=== PATIENT | female | born 2000 | race Two or more races ===

== ENCOUNTER 2022-12-07 10:04 | Emergency (ER) | payer MEDICAID ==
[~2022-12-07] VITALS: Ht 162.6 cm; Wt 115.8 kg
[2022-12-07] MEDS ORDERED: PENICILLIN G BENZ 1200000 UNITS/2 ML SYRG IM ONE (11:00)
[2022-12-07 11:04] VITALS: BP 154/93
== END 2022-12-07 11:41 | disposition home or self-care (01) ==
LOC: ER 10:04
DX: O26.891 Other specified pregnancy related conditions, first trimester (principal); Z3A.11 11 weeks gestation of pregnancy; Z79.2 Long term (current) use of antibiotics
CPT/HCPCS: 96372; 99283; J0561

== ENCOUNTER 2022-12-14 12:49 | Emergency (ER) | payer MEDICAID ==
[~2022-12-14] VITALS: Ht 157.5 cm; Wt 117.7 kg
[2022-12-14] MEDS ORDERED: PENICILLIN G BENZ 1200000 UNITS/2 ML SYRG IM ONE (14:00)
[2022-12-14 14:40] VITALS: BP 130/76
== END 2022-12-14 14:42 | disposition home or self-care (01) ==
LOC: ER 12:49
DX: R10.2 Pelvic and perineal pain (principal); A53.9 Syphilis, unspecified
CPT/HCPCS: 96372; 99283; J0561

== ENCOUNTER 2023-05-08 10:11 | Observation (INO) | payer MEDICAID ==
[2023-05-08 12:11] LABS: Albumin 2.3 g/dL (3.4-5.0); Calcium 8.4 mg/dL (8.5-10.1); Potassium 4.4 mmol/L (3.5-5.1)
[2023-05-08 12:14] LABS: Protein, Urine 23.8 mg/dL (0.0-11.9)
[2023-05-08 12:15] LABS: BUN/Creatinine Ratio 11.9 (10.0-20.0); Bilirubin, Total 0.3 mg/dL (0.2-1.0); Total Protein 6.6 g/dL (6.4-8.2); Uric Acid 4.7 mg/dL (2.6-6.0)
[2023-05-08 12:21] LABS: Urine Bacteria NONE SEEN /hpf (None Seen); Urine Blood Negative /uL (Negative); Urine Specific Gravity 1.016 (1.001-1.035); Urine WBC 8 /hpf (0 - 5)
[2023-05-08 12:26] LABS: Basophils # (auto) 0 10 ^3/uL (0-0.2); Eosinophils # (auto) 0 10 ^3/uL (0-0.8); Monocytes # (auto) 0.5 10 ^3/uL (0-1.3)
[2023-05-08 12:29] LABS: Basophils % (auto) 0.4 % (0.0-2.0); Eosinophils % (auto) 0.4 % (0.0-7.0); Hematocrit 34.3 % (36.0-46.0); Hemoglobin 10.8 g/dL (12.2-16.2); INR 0.93 (0.9-1.15); Lymphocytes # (auto) 2.7 10 ^3/uL (0.4-5.4); Lymphocytes % (auto) 28.7 % (10.0-50.0); Mean Corpuscular Hemoglobin 22.8 pg (28.0-32.0); Mean Corpuscular Hgb Conc. 31.3 g/dL (32.0-36.0); Neutrophils # (auto) 6.1 10 ^3/uL (1.6-8.6); Neutrophils % (auto) 65.5 % (37.0-80.0); Partial Thromboplastin Time 28.5 SEC (24.5-34.5); Red Blood Cells 4.71 10^6/uL (4.0-5.20); Red Cell Distribution Width 16.9 % (11.8-14.3); White Blood Cell 9.3 10^3/uL (4.4-10.8)
[2023-05-08] MEDS ORDERED: NITR-87 PO (13:49)
[2023-05-08] MEDS ORDERED: PREN-96 PO (13:49)
== END 2023-05-08 14:00 | disposition home or self-care (01) ==
LOC: LDRP 10:11
PROVIDERS: ADMIT Obstetrics & Gynecology; ATTEND Obstetrics & Gynecology
DX: O23.43 Unspecified infection of urinary tract in pregnancy, third trimester (principal); N39.0 Urinary tract infection, site not specified; Z3A.33 33 weeks gestation of pregnancy; Z79.899 Other long term (current) drug therapy
CPT/HCPCS: 36415; 59025; 76818; 80053; 81001; 81002; 82570; 84156; 84550; 85025; 85610; 85730; 94760; G0378

== ENCOUNTER 2023-05-24 11:35 | Observation (INO) | payer MEDICAID ==
[~2023-05-24 11:35] MED LIST: NITR-87 PO; PREN-96 PO
== END 2023-05-24 13:00 | disposition home or self-care (01) ==
LOC: LDRP 11:35 → UNDOADMOB 11:35 → LDRP 11:48 → UNDODISOB 13:00
PROVIDERS: ADMIT Obstetrics & Gynecology; ATTEND Obstetrics & Gynecology
DX: O60.03 Preterm labor without delivery, third trimester (principal); Z3A.36 36 weeks gestation of pregnancy
CPT/HCPCS: 59025; 76818; 81002; 94760; G0378

== ENCOUNTER → 2023-05-29 | Outpatient (CLI) | payer MEDICAID ==
[2023-05-29 10:11] LABS: Basophils # (auto) 0 10 ^3/uL (0-0.2); Basophils % (auto) 0.3 % (0.0-2.0); Eosinophils # (auto) 0.1 10 ^3/uL (0-0.8); Eosinophils % (auto) 1.4 % (0.0-7.0); Hematocrit 36.4 % (36.0-46.0); Hemoglobin 11.8 g/dL (12.2-16.2); Lymphocytes # (auto) 2.3 10 ^3/uL (0.4-5.4); Lymphocytes % (auto) 27.8 % (10.0-50.0); Mean Corpuscular Hgb Conc. 32.3 g/dL (32.0-36.0); Mean Corpuscular Volume 74.3 fL (80.0-100.0); Monocytes # (auto) 0.4 10 ^3/uL (0-1.3); Neutrophils # (auto) 5.5 10 ^3/uL (1.6-8.6); Neutrophils % (auto) 65.5 % (37.0-80.0); Nucleated Red Blood Cells % 0.1 %; White Blood Cell 8.4 10^3/uL (4.4-10.8)
[2023-05-30 08:06] LABS: RPR Non Reactive (Non Reactive)
== END | disposition home or self-care (01) ==
LOC: LAB 09:13
PROVIDERS: ATTEND Obstetrics & Gynecology
DX: Z34.80 Encounter for supervision of other normal pregnancy, unspecified trimester (principal)
CPT/HCPCS: 36415; 84112; 85025; 86592

== ENCOUNTER 2023-06-03 04:50 | Inpatient (IN) | payer MEDICAID ==
[~2023-06-03] VITALS: Ht 157.5 cm; Wt 124.3 kg
[2023-06-03] MEDS ORDERED: PENICILLIN G POT 5MIL/D5 50ML 50 ML IV ONE (05:15)
[2023-06-03] MEDS ORDERED: WITCH HAZEL-GLYCERIN PAD TOP PRN (05:15)
[2023-06-03] MEDS ORDERED: DERMOPLAST 60ML BOTTLE TOP PRN (05:15)
[2023-06-03] MEDS ORDERED: LACTATED RINGER'S 1,000 ML IV SCH (05:15)
[2023-06-03] MEDS ORDERED: LIDOCAINE 2%HCL (LOCAL ANESTH.) INJ 20ML MDV IJ PRN (05:15)
[2023-06-03] MEDS ORDERED: PROMETHAZINE HCL 25 MG/ML 1ML IV PRN ×2 (05:15→06:30)
[2023-06-03] MEDS ORDERED: LACT. RINGERS/OXYTOCIN 20UNITS 500 ML IV ONE ×2 (05:15→05:45)
[2023-06-03] MEDS ORDERED: PHISODERM TOP SOLN 240ML BTL TOP PRN (05:15)
[2023-06-03] MEDS ORDERED: LACT. RINGERS/OXYTOCIN 20UNITS 1,000 ML IV ONE (05:40)
[2023-06-03] MEDS ORDERED: fentaNYL CITRATE 100 MCG/2 ML VL IV PRN (06:30)
[2023-06-03] MEDS ORDERED: LIDOCAINE 2%HCL (LOCAL ANESTH.) INJ 20ML MDV ONE (06:35)
[2023-06-03 06:37] LABS: Basophils # (auto) 0 10 ^3/uL (0-0.2); Eosinophils # (auto) 0 10 ^3/uL (0-0.8); Hemoglobin 11.4 g/dL (12.2-16.2); Monocytes # (auto) 0.5 10 ^3/uL (0-1.3); Red Cell Distribution Width 22.1 % (11.8-14.3)
[2023-06-03 06:39] LABS: Basophils % (auto) 0.1 % (0.0-2.0); Hematocrit 35.2 % (36.0-46.0); Lymphocytes % (auto) 16.5 % (10.0-50.0); Mean Corpuscular Hemoglobin 24.6 pg (28.0-32.0); Mean Corpuscular Hgb Conc. 32.5 g/dL (32.0-36.0); Mean Corpuscular Volume 75.7 fL (80.0-100.0); Monocytes % (auto) 4.1 % (0.0-12.0); Neutrophils # (auto) 9.4 10 ^3/uL (1.6-8.6); Neutrophils % (auto) 79.3 % (37.0-80.0); Red Blood Cells 4.65 10^6/uL (4.0-5.20); White Blood Cell 11.9 10^3/uL (4.4-10.8)
[2023-06-03 06:46] LABS: INR 0.89 (0.9-1.15); Partial Thromboplastin Time 28.1 SEC (24.5-34.5); Prothrombin Time 9.4 sec (9.3-11.8)
[2023-06-03 06:57] LABS: Albumin 2.4 g/dL (3.4-5.0); Calcium 8.3 mg/dL (8.5-10.1); Potassium 3.9 mmol/L (3.5-5.1)
[2023-06-03 07:01] LABS: BUN/Creatinine Ratio 14.5 (10.0-20.0); Bilirubin, Total 0.2 mg/dL (0.2-1.0); Total Protein 6.8 g/dL (6.4-8.2)
[2023-06-03 07:41] LABS: Urine Bacteria NONE SEEN /hpf (None Seen); Urine Blood 1+ /uL (Negative); Urine Clarity Clear (Clear); Urine Hyaline Cast FEW /lpf (0 - 2); Urine Protein, UAD Negative (Negative); Urine Specific Gravity 1.006 (1.001-1.035); Urine Urobilinogen Normal (Negative); Urine WBC 5 /hpf (0 - 5); Urine pH 6.5 (5.0-8.0)
[2023-06-03 07:42] LABS: Urine Color Straw (Yellow)
[2023-06-03 08:06] LABS: Alcohol, Urine < 3.0 mg/dL (0-10); Amphetamine Screen, Urine NEGATIVE (NEGATIVE); Barbiturate Scree,Urine NEGATIVE (NEGATIVE); Benzodiazephine Screen, Urine NEGATIVE (NEGATIVE); Cannabinoid Screen, Urine NEGATIVE (NEGATIVE); Cocaine Screen, Urine NEGATIVE (NEGATIVE); Opiate Scree,Urine NEGATIVE (NEGATIVE); Phencyclidine Screen, Urine NEGATIVE (NEGATIVE)
[2023-06-03] MEDS ORDERED: PENICILLIN G POTASSIUM 2,500,000 UNITS in D5W 5% 50 ML IV SCH (09:15)
[2023-06-03] MEDS ORDERED: LACT. RINGERS/OXYTOCIN 20UNITS 1,000 ML IV SCH (10:45)
[2023-06-03] MEDS ORDERED: ONDANSETRON ODT 4 MG TAB PO PRN (11:00)
[2023-06-03] MEDS ORDERED: ACETAMINOPHEN 325 MG TAB PO PRN (11:00)
[2023-06-03 12:13] VITALS: BP 109/58; PULSE 71; RESP 18; TEMP 98; O2SAT 100
[2023-06-03] MEDS: IBUPROFEN 600 MG TAB PO PRN (13:16)
[2023-06-03 15:00] VITALS: BP 119/59; PULSE 61; RESP 16; TEMP 97.8; O2SAT 100
[2023-06-03 18:42] VITALS: BP 120/57; PULSE 62; RESP 16; TEMP 97.8; O2SAT 98
[2023-06-03] MEDS ORDERED: DOCUSATE SOD 100 MG CAP PO SCH (22:00)
[2023-06-03 22:35] VITALS: BP 118/63; PULSE 66; RESP 16; TEMP 97.7; O2SAT 99
[2023-06-04 03:13] VITALS: BP 107/63; PULSE 79; RESP 16; TEMP 98; O2SAT 97
[2023-06-04 06:56] VITALS: BP 105/58; PULSE 84; RESP 16; TEMP 97.9; O2SAT 96
[2023-06-04 07:07] LABS: RPR Non Reactive (Non Reactive)
[2023-06-04] MEDS: IBUPROFEN 600 MG TAB PO PRN (09:14)
[2023-06-04 11:10] VITALS: BP 10/59; PULSE 69; RESP 16; TEMP 98.6; O2SAT 98
[2023-06-05 19:06] LABS: Treponema pallidum Ab (FTA-Ab) Non Reactive (Non Reactive)
== END 2023-06-04 11:20 | disposition home or self-care (01) | DRG 560 ==
LOC: LDRP 04:50 → OBSVTOIN 05:15 → LDRP 05:58
PROVIDERS: ADMIT Obstetrics & Gynecology; ATTEND Obstetrics & Gynecology
PROC: 10E0XZZ Delivery of Products of Conception, External Approach (ICD-10-PCS; principal; 2023-06-03)
PROC: 0HQ9XZZ Repair Perineum Skin, External Approach (ICD-10-PCS; 2023-06-03)
DX: O69.81X0 Labor and delivery complicated by cord around neck, without compression, not applicable or unspecified (principal); Z37.0 Single live birth; O70.0 First degree perineal laceration during delivery; Z3A.37 37 weeks gestation of pregnancy
CPT/HCPCS: 36415; 59025; 59409; 80053; 80307; 81001; 81002; 85025; 85610; 85730; 86592; 86850; 86900; 86901; 94760; 96360; 96361; 96365; 96366; G0378; J2590; J7060